=== PATIENT | female | born 1965 | race American Indian/Alaskan Native ===

== ENCOUNTER 2018-12-26 23:36 | Emergency (ER) | payer MEDICARE ==
[2018-12-26 23:42] VITALS: BP 132/89
[2018-12-27] MEDS ORDERED: predniSONE 50 MG TAB PO ONE (01:24)
[2018-12-27] MEDS ORDERED: KETOROLAC 30 MG/1 ML INJ IM ONE (01:24)
--- NOTE | 2018-12-27 02:04 | Emergency Department Report ---
ED General Adult HPI - General Chief complaint: Skin/Abscess/Foreign Body Stated complaint: CHRONIC PAIN CYST RIGHT HAND Source: patient Mode of arrival: Ambulatory Limitations: No Limitations - History of Present Illness Initial comments: Patient is a 53-year-old [place] female who presents to the ED with component of acute onset persistent nontraumatic right hand pain that radiates proximal to the right forearm and right elbow for the last 2 weeks , worse in the last 2 days. Patient denies fall, traumatic injury, nausea, vomiting, numbness and tingling or weakness of right hand. Patient states that her job entails repeated use of the hand and that may have caused the pain. MD Complaint: right hand pain -: Gradual, week(s) (2) Location: right, upper extremity (hand) Radiation: extremity (proximal right hand) Severity scale (0 -10): 5 Quality: aching, sharp, constant Consistency: constant Improves with: none Worsens with: movement Associated Symptoms: denies other symptoms. denies: confusion, chest pain, cough, diaphoresis, fever/chills, headaches, loss of appetite, nausea/vomiting, seizure, shortness of breath, syncope, weakness Treatments Prior to Arrival: none - Related Data Home Medications Medication Instructions Recorded Confirmed Last Taken Divalproex Dr [Depakote] 500 mg PO HS 12/14/12 04/28/15 11/12/14 risperiDONE [Risperidone] 0.5 mg PO BID 12/14/12 04/28/15 11/12/14 oxyCODONE /ACETAMINOPHEN [Percocet 1 tab PO TID PRN 04/28/15 04/28/15 Unknown 5/325 mg] traZODone [Desyrel] 50 mg PO QHS 04/28/15 04/28/15 Unknown Previous Rx's Medication Instructions Recorded Last Taken Type amLODIPine [Norvasc] 10 mg PO DAILY #30 tablet 11/11/14 11/12/14 Rx Cyclobenzaprine HCl [Flexeril 5 MG 5 mg PO TID #14 tablet 04/28/15 Unknown Rx TAB] HYDROcodone/APAP 5-325 [[place] 1 each PO Q6HR PRN #7 tablet 04/28/15 Unknown Rx 5/325] Benzocaine/Menthol [Cepacol Sore 1 each MM Q4H PRN #20 lozenge 12/10/18 Unknown Rx Throat Lozenge] Ibuprofen [Motrin 600 MG tab] 600 mg PO Q8H PRN #30 tablet 12/10/18 Unknown Rx Acetaminophen/Codeine [Tylenol 1 tab PO Q6H PRN #10 tab 12/27/18 Unknown Rx /Codeine # 3 tab] Ibuprofen [Motrin] 800 mg PO Q8HR PRN #24 tablet 12/27/18 Unknown Rx predniSONE [Deltasone] 40 mg PO DAILY #10 tablet 12/27/18 Unknown Rx tiZANidine [Zanaflex 4mg TAB] 4 mg PO Q8H PRN #15 tablet 12/27/18 Unknown Rx Allergies Allergy/AdvReac Type Severity Reaction Status Date / Time No Known Allergies Allergy Verified 11/12/14 10:54 ED Review of Systems ROS: Stated complaint: CHRONIC PAIN CYST RIGHT HAND Other details as noted in HPI Constitutional: denies: chills, fever Eyes: denies: eye pain, eye discharge, vision change ENT: denies: ear pain, throat pain Respiratory: denies: cough, shortness of breath, wheezing Cardiovascular: denies: chest pain, palpitations Endocrine: no symptoms reported Gastrointestinal: denies: abdominal pain, nausea, diarrhea Genitourinary: denies: urgency, dysuria, discharge Musculoskeletal: arthralgia (right hand), myalgia. denies: back pain, joint swelling Skin: denies: rash, lesions Neurological: denies: headache, weakness, paresthesias Psychiatric: denies: anxiety, depression Hematological/Lymphatic: denies: easy bleeding, easy bruising ED Past Medical Hx - Past Medical History Hx Hypertension: Yes Hx Psychiatric Treatment: Yes (bipolar, anxiety, SCHIZOPHRENIA, MANIC DEPRESSION) Additional medical history: chronic pain in neck and back, gout - Surgical History Hx Breast Surgery: Yes (RIGHT MASTECTOMY AND RECONSTRUCTION) Additional Surgical History: right mastectomy - Social History Smoking Status: Current Every Day Smoker Substance Use Type: None - Medications Home Medications: Home Medications Medication Instructions Recorded Confirmed Last Taken Type Divalproex Dr [Depakote] 500 mg PO HS 12/14/12 04/28/15 11/12/14 History risperiDONE [Risperidone] 0.5 mg PO BID 12/14/12 04/28/15 11/12/14 History amLODIPine [Norvasc] 10 mg PO DAILY #30 tablet 08/04/28/15 11/12/14 Rx Cyclobenzaprine HCl [Flexeril 5 MG 5 mg PO TID #14 tablet 04/28/15 Unknown Rx TAB] HYDROcodone/APAP 5-325 [[place] 1 each PO Q6HR PRN #7 tablet 04/28/15 Unknown Rx 5/325] oxyCODONE /ACETAMINOPHEN [Percocet 1 tab PO TID PRN 04/28/15 04/28/15 Unknown History 5/325 mg] traZODone [Desyrel] 50 mg PO QHS 04/28/15 04/28/15 Unknown History Benzocaine/Menthol [Cepacol Sore 1 each MM Q4H PRN #20 lozenge 12/10/18 Unknown Rx Throat Lozenge] Ibuprofen [Motrin 600 MG tab] 600 mg PO Q8H PRN #30 tablet 12/10/18 Unknown Rx Acetaminophen/Codeine [Tylenol 1 tab PO Q6H PRN #10 tab 12/27/18 Unknown Rx /Codeine # 3 tab] Ibuprofen [Motrin] 800 mg PO Q8HR PRN #24 tablet 12/27/18 Unknown Rx predniSONE [Deltasone] 40 mg PO DAILY #10 tablet 12/27/18 Unknown Rx tiZANidine [Zanaflex 4mg TAB] 4 mg PO Q8H PRN #15 tablet 12/27/18 Unknown Rx ED Physical Exam - General Limitations: No Limitations General appearance: alert, in no apparent distress - Head Head exam: Present: atraumatic, normocephalic, normal inspection - Eye Eye exam: Present: normal appearance, PERRL, EOMI Pupils: Present: normal accommodation - ENT ENT exam: Present: normal exam, normal orophraynx, mucous membranes moist, TM's normal bilaterally, normal external ear exam - Neck Neck exam: Present: normal inspection, full ROM - Respiratory Respiratory exam: Present: normal lung sounds bilaterally. Absent: respiratory distress, wheezes, rales, stridor, chest wall tenderness, accessory muscle use, decreased breath sounds - Cardiovascular Cardiovascular Exam: Present: regular rate, normal rhythm, normal heart sounds. Absent: systolic murmur, diastolic murmur, rubs, gallop - GI/Abdominal GI/Abdominal exam: Present: soft, normal bowel sounds. Absent: tenderness, guarding, rebound - Extremities Exam Extremities exam: Present: normal inspection, tenderness (right hand t enderness). Absent: normal capillary refill, pedal edema, joint swelling - Back Exam Back exam: Present: normal inspection, full ROM. Absent: tenderness, CVA t enderness (R), CVA tenderness (L), muscle spasm, vertebral tenderness - Neurological Exam Neurological exam: Present: alert, oriented X3, CN II-XII intact, normal gait, reflexes normal - Psychiatric Psychiatric exam: Present: normal affect, normal mood - Skin Skin exam: Present: warm, dry, intact, normal color. Absent: rash ED Course Vital Signs 12/26/18 12/27/18 23:39 01:40 Temperature 97.6 F Pulse Rate 97 H Respiratory 18 18 Rate Blood Pressure 132/89 O2 Sat by Pulse 100 Oximetry ED Medical Decision Making - Medical Decision Making This is a 53-year-old [place] female who presented to the ED with nontraumatic painful right hand for 2 weeks, worse in the last 2 days. In the ED, patient is alert and oriented 3 and is not in distress. Patient was treated for pain and discharged home on pain medications and muscle relaxant. Patient's pain and symptoms are likely due to tendonitis based on her repeated use of her hand at work. On reevaluation, patient's pain is well controlled with medications and was discharged home on medications for pain and muscle relaxants. Patient was advised to follow-up with her primary care physician in 7-10 days for reevaluation or return to the ED immediately if symptoms get worse. - Differential Diagnosis tendonitis; tenosynovitis; muscle strain Critical care attestation.: If time is entered above; I have spent that time in minutes in the direct care of this critically ill patient, excluding procedure time. ED Disposition Clinical Impression: Tendinitis of right hand, Strain of muscle of right hand Disposition: DC-01 TO HOME OR SELFCARE Is pt being admited?: No Does the pt Need Aspirin: No Condition: Stable Instructions: Muscle Strain (ED), Tendinitis (ED), Musculoskeletal Pain (ED) Additional Instructions: Take medication with food, drink plenty of fluids and follow-up with your primary care physician in 7-10 days for reevaluation. Return to the ED immediately if symptoms get worse. Prescriptions: predniSONE [Deltasone] 40 mg PO DAILY #10 tablet Ibuprofen [Motrin] 800 mg PO Q8HR PRN #24 tablet PRN Reason: Pain , Severe (7-10) Acetaminophen/Codeine [Tylenol /Codeine # 3 tab] 1 tab PO Q6H PRN #10 tab PRN Reason: Pain , Severe (7-10) tiZANidine [Zanaflex 4mg TAB] 4 mg PO Q8H PRN #15 tablet PRN Reason: Muscle Spasm Referrals: [facility] [Outside] - 3-5 Days Forms: Work/School Release Form(ED) Time of Disposition: 02:01 Print Language: MACANESE
== END 2018-12-27 02:25 | disposition home or self-care (01) ==
LOC: ED 23:36
DX: S66.911A Strain of unspecified muscle, fascia and tendon at wrist and hand level, right hand, initial encounter (principal); M77.9 Enthesopathy, unspecified; I10 Essential (primary) hypertension; F31.9 Bipolar disorder, unspecified; F20.9 Schizophrenia, unspecified; F17.200 Nicotine dependence, unspecified, uncomplicated; X58.XXXA Exposure to other specified factors, initial encounter; Y93.89 Activity, other specified; Y92.89 Other specified places as the place of occurrence of the external cause; Y99.8 Other external cause status
CPT/HCPCS: 96372; 99282; J1885; J7512